=== PATIENT | female | born 1945 | race Caucasian/White ===

== ENCOUNTER → 2024-11-30 15:00 | Outpatient (REF) | payer MEDICARE, BC, SELFPAY ==
[2024-11-30 16:00] LABS: Hematocrit 40.1 % (37.0-47.0); Hemoglobin 13.6 g/dL (12.0-16.0); Mean Corp Hgb Conc. 33.9 g/dL (33.0-37.0); Mean Corpuscular Volume 91.8 fL (81.0-99.0); Nucleated Red Blood Cells % 0 %; Platelet Count 224 10^3/uL (130-400); Red Cell Dist. Width 12.6 % (11.5-14.5)
[2024-11-30 16:17] LABS: Blood Urea Nitrogen 22 mg/dl (7-17); Calcium 10.1 mg/dl (8.4-10.2); Carbon Dioxide 28 mmol/L (22-30); Chloride 101 mmol/L (98-107); Glucose 92 mg/dl (70-99); Potassium 5.1 mmol/L (3.5-5.1); Sodium 137 mmol/L (135-145); eGFR 56.60
== END ==
LOC: REG 15:00
PROVIDERS: ATTENDING PHYSICIAN Orthopaedic Surgery; FAMILY PHYSICIAN Family Medicine
DX: Z01.818 Encounter for other preprocedural examination (principal)
CPT/HCPCS: 36415; 80048; 85025; 93005

== ENCOUNTER 2025-04-30 14:03 | Emergency (ER) | payer MEDICARE, BC, SELFPAY ==
[2025-04-30 14:24] VITALS: BP 117/59
--- NOTE | 2025-04-30 18:20 | ED.GENMED ---
History of Present Illness
General
Chief Complaint: Swelling
Source: patient
Exam Limitations: none
Time Seen by Provider: 04/30/25 18:19
Nursing documentation reviewed up to this point in time: agreed with
History of Present Illness
History of Present Illness:
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 Swelling noted this a.m. denies chest pain or trouble breathing.
She is concerned that the swelling has something to do with her right hip replacement as she has had pain and cannot lift her leg. She has an appointment in May at [facility] for reevaluation of the hip.
Past History
Past History
ED Past Medical History: HTN, Hypercholesterolemia and Hypothyroidism
ED Past Surgical History: Appendectomy, Gynecological, Orthopedic and Tonsilectomy
Social History
Tobacco: Non-smoker
Personal:
Living: with family
Review of Systems
Review of Systems
Allergies reviewed?: Yes
All Other Systems: ROS reviewed and negative except as documented in HPI and ROS
Phy Exam
Physical Exam
Physical Exam:
GENERAL: No acute distress. A&Ox3.
CONSTITUTIONAL: Afebrile.
RESPIRATORY: Regular respirations, nonlabored, lungs clear.
CARDIOVASCULAR: Regular rate and rhythm, no murmurs, no rubs.
MUSCULOSKELETAL: Moves with ease. Well perfused. No notable swelling of the right calf, appears equal to the left calf. No redness or warmth or tenderness. Distal neurovascular intact.
SKIN: Warm, dry, pink
PSYCH: Normal mood and affect. Well kept, interactive and appropriate
NEUROLOGIC: Awake, alert and oriented. No focal neurological deficits
Scores
Heart Failure Risk
Heart Failure Risk Score: Not Applicable
Course
Orders/Labs/Results
Orders:
Orders
04/30/25 14:27
Periph Venous Lwr Ext Rt US [US Periph Venous LOWER Ext RT] Urgent
Comment:
Reason For Exam: swelling
Vital Signs
Initial and Last Documented VS:
Initial Vital Signs
Temp Pulse Resp BP Pulse Ox
97.5 F 71 20 117/59 96
04/30/25 14:24 04/30/25 14:24 04/30/25 14:24 04/30/25 14:24 04/30/25 14:24
Last Documented Vital Signs
Temp Pulse Resp BP Pulse Ox
97.5 F 67 18 134/84 98
04/30/25 14:24 04/30/25 18:45 04/30/25 18:45 04/30/25 18:45 04/30/25 18:45
MDM/Problems Addressed
MDM/Problems Addressed:
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 Swelling noted this a.m. denies chest pain or trouble breathing.
She is concerned that the swelling has something to do with her right hip replacement as she has had pain and cannot lift her leg. She has an appointment in May at [facility] for reevaluation of the hip.
Ultrasound negative for DVT
Patient and informed. They are much relieved and states that is the only reason they were here, to rule out DVT.
*Pulse Oximetry
SaO2: 96
Oxygen Mode of Delivery: Room air
Patient hypoxic: no
*Critical Care Note
Total Time (30-74mins, 75-104mins- exclusive of procedures): Not Applicable
ED Attending Note
-
Portions of this chart may have been created with voice recognition software.� Occasional wrong word or��sound alike� substitutions may have occurred due to the inherent limitations of voice recognition software.
Discharge Plan
Departure
Patient Disposition: Home (Routine Discharge)
Date of Disposition: 04/30/25
Time of Disposition: 18:34
Patient with high blood pressure during this ER visit?: No
Condition: Good
Discharge Problem:
Pain of right calf
Referrals:
Holli De La Garza DO [Family Provider, Family Practice]
Activity Restrictions/Additional Instructions:
As we discussed, your ultrasound shows no blood clots.
Interventions
Interventions:
*General Assessment Last Done: 04/30/25 18:42
*Neglect/Abuse Screening Last Done: 04/30/25 18:42
*ED COVID-19 Vaccine History Last Done: 04/30/25 18:42
*ED Influenza Vaccine History Last Done: 04/30/25 18:42
[facility] Fall Risk Assessment Tool Last Done: 04/30/25 18:42
*Risk Screen - Suicide (C-SSRS) Last Done: 04/30/25 18:42
*Nursing Disposition Last Done: 04/30/25 18:42
ED- Cardiac Assessment Last Done: 04/30/25 18:40
ED- Pulmonary Assessment Last Done: 04/30/25 18:40
ED-Skin Assessment Last Done: 04/30/25 18:40
Discharge Date and Time
Discharge Date/Time: 04/30/25 18:35
Print Language: [id number]
[2025-04-30 18:45] VITALS: BP 134/84
== END 2025-04-30 18:35 | disposition home or self-care (01) ==
LOC: EMR 14:03
PROVIDERS: EMERGENCY PHYSICIAN Emergency Medicine; FAMILY PHYSICIAN Family Medicine
DX: M79.661 Pain in right lower leg (principal); I10 Essential (primary) hypertension; E78.00 Pure hypercholesterolemia, unspecified; E03.9 Hypothyroidism, unspecified; Z96.641 Presence of right artificial hip joint
CPT/HCPCS: 99284; 93971